=== PATIENT | male | born 1995 | race Asian ===

== ENCOUNTER 2023-10-23 17:43 | Observation (INO) ==
[2023-10-23 20:36] LABS: Urine Appearance Turbid; Urine Bilirubin Negative (Negative); Urine Blood 3+ (Negative); Urine Color Colorless; Urine Glucose Negative (Negative); Urine Ketones Negative (Negative); Urine Nitrite Negative (Negative); Urine Protein Trace (Negative); Urine Specific Gravity 1.011 (1.002-1.030); Urine Urobilinogen Negative (Negative)
[2023-10-23 20:48] LABS: Urine Bacteria Absent /HPF (Absent); Urine Red Blood Cell 3+(>10/hpf) /HPF (0-Trace); Urine White Blood Cell Trace(0-5/hpf) /HPF (0-Trace)
[2023-10-23 20:50] LABS: ABS Basophils 0.1 10^3/uL (0.0-0.1); ABS Eosinophils 0.2 10^3/uL (0.0-0.5); ABS Lymphocytes 2.3 10^3/uL (1.0-4.8); ABS Monocytes 0.5 10^3/uL (0.0-1.1); ABS Neutrophils 5.9 10^3/uL (1.5-7.6); ABS Nucleated RBC 0.01 10^3/ul; Eosinophil % 2.2 %; Hematocrit 47.2 % (38-53); Hemoglobin 15.8 g/dL (13.2-16.3); Lymphocyte % 25.3 %; Mean Corpuscular Hemoglobin 29.3 pg (27-33); Mean Corpuscular Hgb Conc 33.4 g/dL (31-36); Mean Corpuscular Volume 87.7 fL (80-97); Mean Platelet Volume 8.4 fL (7.5-11.2); Nucleated Red Blood Cells % 0.1 %/100WBC (0.0-0.8); Platelet Count 283 10^3/uL (150-450); Red Blood Count 5.38 10^6/uL (4.06-5.63); Red Cell Distribution Width 13.2 % (12-17)
[2023-10-23 21:05] LABS: Albumin 5.2 g/dL (3.2-5.2); Albumin/Globulin Ratio 1.9 (1-3); Calcium 9.6 mg/dL (8.6-10.3); Creatinine, Serum 0.88 mg/dL (0.67-1.17); Globulin 2.8 g/dL (2-4); Potassium 4.3 mmol/L (3.5-5.0); Total Bilirubin 0.5 mg/dL (0.2-1.0); eGFR CKD-EPI 118.6 (>60)
[2023-10-24] MEDS: Lactated Ringers 1000 ml BAG 2,000 ML IV ONE (01:30)
[2023-10-24] MEDS: cefTRIAXone 1 gm/50 mL D5W 1 GM/50 ML BAG IV SCH (03:00)
[2023-10-24] MEDS: Lactated Ringers 1000 ml BAG 1,000 ML IV SCH (04:52)
[2023-10-24 11:15] LABS: ABS Basophils 0.1 10^3/uL (0.0-0.1); ABS Eosinophils 0.1 10^3/uL (0.0-0.5); ABS Lymphocytes 1.7 10^3/uL (1.0-4.8); ABS Monocytes 0.3 10^3/uL (0.0-1.1); ABS Neutrophils 4.3 10^3/uL (1.5-7.6); ABS Nucleated RBC 0.01 10^3/ul; Eosinophil % 1.8 %; Hematocrit 45.7 % (38-53); Hemoglobin 15.2 g/dL (13.2-16.3); Lymphocyte % 25.4 %; Mean Corpuscular Hemoglobin 29.1 pg (27-33); Mean Corpuscular Hgb Conc 33.2 g/dL (31-36); Mean Corpuscular Volume 87.7 fL (80-97); Mean Platelet Volume 7.9 fL (7.5-11.2); Nucleated Red Blood Cells % 0.2 %/100WBC (0.0-0.8); Platelet Count 255 10^3/uL (150-450); Red Blood Count 5.21 10^6/uL (4.06-5.63); Red Cell Distribution Width 13.2 % (12-17); White Blood Count 6.5 10^3/uL (3.6-10.2)
[2023-10-24 11:47] LABS: Calcium 9.3 mg/dL (8.6-10.3); Creatinine, Serum 0.8 mg/dL (0.67-1.17); eGFR CKD-EPI 122.1 (>60)
[2023-10-24 13:47] LABS: Chlamydia trachomatis NAA Negative (Negative); Neisseria gonorrhoeae (GC) NAA Negative (Negative)
[2023-10-24] MEDS ORDERED: Iohexol 180 (CONTRAST) 10 ML SDV IV ONE (14:55)
[2023-10-24] MEDS ORDERED: fentaNYL 100 mcg/2 ml 50 MCG/ML VIAL ONE (15:21)
[2023-10-24] MEDS ORDERED: Lidocaine 2% PF 5 ML VIAL ONE (15:21)
[2023-10-24] MEDS ORDERED: Propofol 10 MG/ML 20 ML BTL ONE (15:21)
[2023-10-24] MEDS ORDERED: Ondansetron 4 mg VIAL 2 MG/ML 2 ml VIAL ONE (15:43)
[2023-10-24] MEDS ORDERED: Dexamethasone IV 4 MG/ML VIAL 1 ml VIAL ONE (15:43)
[2023-10-24] MEDS ORDERED: Naloxone 0.4 mg VIAL 0.4 mg/ml 1 ml VIAL IV PRN (16:16)
[2023-10-24] MEDS ORDERED: fentaNYL 100 mcg/2 ml 50 MCG/ML VIAL IV PRN (16:16)
[2023-10-24 17:31] VITALS: BP 119/90
== END 2023-10-24 17:42 | disposition home or self-care (01) ==
LOC: ED 17:43 → EDHOLD 17:43 → AA 10-24 09:26
PROVIDERS: ADMIT Student in an Organized Health Care Education/Training Program; ATTEND Urology